=== PATIENT | female | born 1950 | race American Indian/Alaskan Native ===

== ENCOUNTER 2017-10-28 00:49 | Emergency (ER) | payer MEDICARE ==
[2017-10-28 02:29] VITALS: BP 158/56
--- NOTE | 2017-10-28 04:03 | Emergency Department Report ---
Minor Respiratory - HPI Chief Complaint: Abdominal Pain Stated Complaint: COLD SX Time Seen by Provider: 10/28/17 03:48 Duration: 1 week Severity: moderate Minor Respiratory: Yes Cough, No Rhinorrhea, No Sore Throat, No Able to Tolerate Fluids, No Ear Pain, No Sick Contacts, No Hemoptysis, No Chest Pain, No Shortness of Breath, No Fever Other History: Patient is a 66-year-old female who states that a history of bronchitis in the past. Patient states since the last of October she's been having this coughing spells. Patient states intermittent dry cough and nonproductive. She states she has not been around any sick contacts and has not had any fever, chills, nausea, vomiting or any other problems. ED Review of Systems ROS: Stated complaint: COLD SX Other details as noted in HPI Constitutional: denies: chills, fever Eyes: denies: eye pain, eye discharge, vision change ENT: denies: ear pain, throat pain Respiratory: cough. denies: shortness of breath, wheezing Cardiovascular: denies: chest pain, palpitations Endocrine: no symptoms reported Gastrointestinal: denies: abdominal pain, nausea, diarrhea Genitourinary: denies: urgency, dysuria, discharge Musculoskeletal: denies: back pain, joint swelling, arthralgia Skin: denies: rash, lesions Neurological: denies: headache, weakness, paresthesias Psychiatric: denies: anxiety, depression Hematological/Lymphatic: denies: easy bleeding, easy bruising ED Past Medical Hx - Past Medical History Previous Medical History?: Yes Hx Hypertension: Yes Hx GERD: Yes Additional medical history: bronchitis , chronic back pain( l4-l5), lower bulging disk - Surgical History Past Surgical History?: No - Social History Smoking Status: Current Every Day Smoker Substance Use Type: None - Medications Home Medications: Home Medications Medication Instructions Recorded Confirmed Last Taken Type Metoprolol Xl [Toprol Xl] 50 mg PO QDAY 08/04/13 01/31/14 01/31/14 09:00 History Pantoprazole [Protonix] 40 mg PO QDAY 08/04/13 01/31/14 01/31/14 09:00 History Triamter/Hctz 75-50 mg (Nf) 1 tab PO QDAY 08/04/13 01/31/14 01/31/14 09:00 History [Maxzide 75-50 mg] HYDROcodone/APAP 5-325 [[place] 1 each PO Q6HR PRN #14 tablet 02/01/14 Unknown Rx 5/325 mg] Nitrofurantoin [place]/M-Cryst 100 mg PO Q12HR #14 capsule 02/01/14 Unknown Rx [Macrobid] Cyclobenzaprine [Flexeril 10 MG 10 mg PO TID PRN #20 tablet 11/23/14 Unknown Rx TAB] Oxycodone HCl/Acetaminophen 1 each PO Q6HR PRN #14 tablet 11/23/14 Unknown Rx [Percocet 10-325 mg] oxyCODONE /ACETAMINOPHEN [Percocet 1 - 2 tab PO Q6HR PRN #20 tablet 03/15/15 Unknown Rx 5/325] ALBUTEROL Inhaler [ProAir HFA 2 puff IH QID PRN #1 device 10/28/17 Unknown Rx Inhaler] Benzonatate [Tessalon Perles] 100 mg PO Q8HR #24 capsule 10/28/17 Unknown Rx guaiFENesin [Tussin Mucus-Chest 100 mg PO Q6H #100 ml 10/28/17 Unknown Rx Congestion] Minor Respiratory Exam - Exam General: Vital signs noted. No distress. Alert and acting appropriately. HEENT: Yes Moist Mucous Membranes, No Pharyngeal Erythema, No Pharyngeal Exudates, No Rhinorrhea, No Conjuctival Injection, No Frontal Tenderness, No Maxillary Tenderness Ear: Neither TM Bulge, Neither TM Erythema, Neither EAC Pain, Neither EAC Discharge Neck: Yes Supple, No Adenopathy Lungs: Yes Good Air Exchange, No Wheezes, No Ronchi, No Stridor, No Cough, No Labored Respirations, No Retractions, No Use of Accessory Muscles, No Other Abnormal Lung Sounds Heart: Yes Regular, No Murmur Abdomen: Yes Normal Bowel Sounds, No Tenderness, No Peritoneal Signs Skin: No Rash, No Edema Neurologic: Alert and oriented, no deficits. Musculoskeletal: Unremarkable. ED Course Vital Signs 10/28/17 02:24 Temperature 97.9 F Pulse Rate 84 Respiratory 18 Rate Blood Pressure 158/56 O2 Sat by Pulse 98 Oximetry ED Medical Decision Making - Medical Decision Making 66-year-old female presents with bronchitis flare up. ED course: Patient is sent home on medication. She states she's been here for this before and usually uses Tussn x and that helps her well. I discussed the patient was sent home on some albuterol to help with the bronchitis. Vital signs are normal patient is in no acute distress Patient is in no respiratory distress. Patient was lying comfortably in the ED. Prior to discharge. Discussed patient to follow up with primary care physician. I discussed the patient is symptoms worsen or new symptoms arise to return to ED. Critical care attestation.: If time is entered above; I have spent that time in minutes in the direct care of this critically ill patient, excluding procedure time. ED Disposition Clinical Impression: Acute bronchitis Qualifiers: Bronchitis organism: unspecified organism Qualified Code(s): J20.9 - Acute bronchitis, unspecified Disposition: DC- TO HOME OR SELFCARE Is pt being admited?: No Does the pt Need Aspirin: No Condition: Stable Instructions: Acute Bronchitis (ED) Additional Instructions: Make sure to follow up with the primary care physician as discussed. Take all your medications as you've been prescribed. If you have any worsening symptoms or develop new symptoms please return to ED immediately. Prescriptions: ALBUTEROL Inhaler [ProAir HFA Inhaler] 2 puff IH QID PRN #1 device PRN Reason: Shortness Of Breath Benzonatate [Tessalon Perles] 100 mg PO Q8HR #24 capsule guaiFENesin [Tussin Mucus-Chest Congestion] 100 mg PO Q6H #100 ml Referrals: YVONNE ADAM MD [Primary Care Provider] - 3-5 Days Forms: Work/School Release Form(ED) Time of Disposition: 04:03
== END 2017-10-28 04:59 | disposition home or self-care (01) ==
LOC: ED 00:49
DX: J20.9 Acute bronchitis, unspecified (principal); I10 Essential (primary) hypertension; K21.9 Gastro-esophageal reflux disease without esophagitis; G89.29 Other chronic pain; F17.200 Nicotine dependence, unspecified, uncomplicated; Z88.6 Allergy status to analgesic agent; Z88.2 Allergy status to sulfonamides
CPT/HCPCS: 99282